=== PATIENT | female | born 1940 | race Caucasian/White ===

== ENCOUNTER → 2016-06-30 | Outpatient (CLI) | payer MEDICARE, OTHER ==
[~2016-06-30] MED LIST: ASPIRIN81 M2 PO; ATACAND32 MG PO; BISOPROLOL/HCTZ1 TA3 PO; EFFIENT10 MG PO; GABAPENTIN300 M2 PO; GLUCOSAMINE CHO1 CA1 PO; GLUCOSAMINE1000 MG PO; HYDROCODON-ACE1 EAC5 PO; LEVOXYL200 MC1 PO; LIORESAL10 MG PO; MAG-OX 400400 MG PO; NAPROSYN500 MG PO; NAPROXEN PO; OMEPRAZOLE40 M1 PO; PERCOCET PO; SERTRALINE HCL100 M1 PO; SIMVASTATIN40 MG PO; SYNTHROID PO; SYNTHROID25 MCG PO; TRAMADOL HCL50 M1 PO; VITAMIN B12; VITAMIN C500 M1 PO; WARFARIN SODIUM6 M1 PO; ZEBETA5 MG PO; ZIAC PO; ZIAC1 TAB 2.5/ PO; ZOCOR PO; ZOLOFT PO; ZOLOFT100 MG PO
--- NOTE | ~2016-06-30 | MY11 ---
[facility] A Service of [facility] RADIOLOGY TEXT RESULTS PATIENT: LUISA MARTINEZ LOCATION: [facility] : 42 UNIT #: [id number] AGE: [address]: GRAYSON MALLOY MD SEX: F ORDER DR: [id number] [address] [address] [id number] O MR#: [id number] Acc #: [id number] NAME: LUISA MARTINEZ : 1940 SEX: F STUDY DATE/TIME: 06/30/2016 13:14 UNIT: [facility] ROOM: STUDY DESCRIPTION: MY Mammogram Screening Dig Efren Attending Physician: Dixon Malloy M.D. Referring Physician: Dixon Malloy M.D. Ordering Physician: Dixon Malloy M.D. Primary Care Physician: Dixon Malloy M.D. MEDICAL IMAGING REPORT This report is preliminary unless electronic signature is present. EXAM Digital screening mammogram, 06/30/2016, [facility]. HISTORY 76-year-old woman, no risk elevation. Previous right breast biopsy.. Annual screen. COMPARISON Digitized film screen images 11/20/2006, 12/31/2007. TECHNIQUE Digital imaging of each breast was completed utilizing a screening protocol. Mole markers are placed. Review includes FDA-approved CAD device. FINDINGS Breast parenchyma is fatty replaced. Intramammary lymph node upper posterior third right breast is stable. There is no suspicious breast mass. There are no interval occurring microcalcifications and no architectural deformity. IMPRESSION Negative mammogram. Annual screening recommended. Patients over the age of 40 are entered into a reminder system with target due date for the next mammogram. A result letter will also be sent to the patient. BIRADS: 1 Negative [facility] A Service of [facility] RADIOLOGY TEXT RESULTS PATIENT: LUISA MARTINEZ LOCATION: [facility] : 42 UNIT #: [id number] AGE: [address]: GRAYSON MALLOY MD SEX: F ORDER DR: Dictated by... Marcial Trejo M.D. THIS IS AN ELECTRONICALLY VERIFIED REPORT Marcial Trejo M.D. at 07/04/2016 3:13 PM ARPITA/sathish TD: 07/04/2016 13:51 JOB #: [id number] MEDICAL IMAGING REPORT Page 1 of 1
== END | disposition home or self-care (01) ==
LOC: SMAM 13:53
DX: Z12.31 Encounter for screening mammogram for malignant neoplasm of breast (principal); Z98.890 Other specified postprocedural states
CPT/HCPCS: G0202

== ENCOUNTER → 2016-07-24 | Outpatient (CLI) | payer MEDICARE, OTHER ==
[2016-07-24 10:19] LABS: ALBUMIN SERUM 4.3 g/dL (3.5-5.0); BILIRUBIN,TOTAL 0.6 mg/dL (0.2-2.0); CALCIUM SERUM 9.2 mg/dL (8.4-10.2); GLOM FILT RATE Estimated 55.5 mL/min (>60); POTASSIUM 4.5 mmol/L (3.5-5.1); PROTEIN TOTAL SERUM 7.1 g/dL (6.0-8.3)
== END | disposition home or self-care (01) ==
LOC: SLAB 09:35
PROVIDERS: Obstetrics & Gynecology
DX: M15.9 Polyosteoarthritis, unspecified (principal); Z79.1 Long term (current) use of non-steroidal anti-inflammatories (NSAID)
CPT/HCPCS: 36415; 80053

== ENCOUNTER 2016-08-29 14:55 | Inpatient (IN) | payer MEDICARE, OTHER ==
--- NOTE | ~2016-08-29 | CO ---
Unit #: [id number] #: [id number] Patient: LUISA MARTINEZ [id number] [address] [address] [id number] I MR#: [id number] NAME: LUISA MARTINEZ ROOM: 320 Age: 76 Sex: F Admission Date: 08/29/2016 : 1940 Attending Physician: Antonette Ko M.D. Primary Care Physician: Dixon Llanes M.D. Consultation Date: 08/30/2016 CONSULTATION REPORT HISTORY OF PRESENT ILLNESS Ms. Martinez is a 76-year-old white female with nausea, vomiting, intense abdominal pain. The patient was seen in the emergency room and was noted to have increased lipase and amylase consistent with pancreatitis. CT scan confirmed this diagnosis. There was a question of whether or not she also had gallstones. PAST MEDICAL HISTORY Gastroesophageal reflux disease, hypertension, coronary artery disease and thyroid issues as well as psychiatric issues. PAST SURGICAL HISTORY Tonsillectomy, hysterectomy, thyroidectomy, rectal fistula surgery, heart stents, epidural blocks. SOCIAL HISTORY She is a nonsmoker, nondrinker, retired, disabled. ALLERGIES IV dye. HOME MEDICATIONS 1. Atacand. 2. Effient. 3. Zocor. 4. Zoloft. 5. Ziac. 6. Glucosamine. 7. Vitamin C. 8. Vitamin B12. PHYSICAL EXAMINATION VITAL SIGNS: Temperature 98. Pulse 70. Respirations 18. Blood pressure 190/80. HEENT: ENT clear. There is no jaundice. Injected sclerae noted. Pupils equal, reactive to light and accommodation. CHEST: Grossly clear. CARDIAC: Rhythm is regular. No murmurs. ABDOMEN: Soft, nontender but the patient is dry heaving. She does have some mid epigastric fullness. EXTREMITIES: Limited range of motion. She is at bedrest at present. IMPRESSION Severe biliary pancreatitis. See laboratory and CT scanning. I do not Unit #: [id number] #: [id number] Patient: LUISA MARTINEZ feel she has retained common duct stone with normal bilirubin. Dr. Dalton, however, was consulted. She does need further IV antibiotics. Check labs and observe her. Dictated by... Sumeet Smith/malcolm TD: 08/30/2016 11:37 JOB #: [id number] CONSULTATION REPORT Page 1 of 1 X Hernesto Lopez MD CONSULTATION REPORT
--- NOTE | ~2016-08-29 | OR ---
Unit #: [id number] #: [id number] Patient: LUISA MARTINEZ [id number] [address] [place], [place] [address] [id number] I MR#: [id number] NAME: LUISA MARTINEZ ROOM: [facility] Date of Procedure: 08/30/2016 Admission Date: 08/29/2016 Surgeon: Bobo Dalton M.D. : 1940 Attending Physician: Antonette Ko M.D. Primary Care Physician: See Llanes OPERATIVE REPORT PREOPERATIVE DIAGNOSES The patient has presented with biliary pancreatitis. In addition, she is found to have possibly a stone in the distal common bile duct. PROCEDURES PERFORMED 1. Endoscopic retrograde cholangiopancreatography and sphincterotomy. 2. Endoscopic retrograde cholangiopancreatography and balloon sweep. POSTOPERATIVE DIAGNOSES The patient had a normal ERCP. The common bile duct was about 7 to 8 mm in size. After a limited sphincterotomy, the duct was swept with a 9 mm balloon multiple times and no filling defects or stones were found. The cystic duct was patent. RECOMMENDATIONS 1. Clear liquid diet. 2. N.p.o. after midnight. 3. The patient will require laparoscopic cholecystectomy as per surgery recommendations in a day or two. SEDATION USED MAC. DESCRIPTION OF PROCEDURE Following detailed explanation of the potential risks and complications of an ERCP, namely perforation, bleeding, and complications related to sedation, the patient was brought to GI lab and laid in the left semiprone position. Sedation using MAC was given. A preliminary upper GI endoscopy was performed, which was normal. The lateral viewing duodenoscope was advanced through the oral cavity into the esophagus and advanced into the stomach. Pylorus was intubated in usual fashion. The scope was advanced in deep descending duodenum. Upon shortening the scope, major papilla and ampullary area was visualized en face. Using selective guidewire cannulation based technique, the common bile duct was cannulated in the first attempt. The contrast cholangiogram was obtained. The CBD that was dilated about 7 mm; however, no obvious filling defects were seen. We then performed a limited sphincterotomy. The duct was then swept with a 9 mm balloon multiple times and no filling defects nor any stone was seen or delivered. Excellent drainage of bile was seen. A normal occlusion cholangiogram was demonstrated. The scope and the accessories were then withdrawn. The patient returned to the recovery area. She tolerated the procedure without any postprocedure complications. Unit #: [id number] #: [id number] Patient: LUISA MARTINEZ Dictated by.Sumeet Castano/deejay TD: 08/31/2016 03:06 JOB #: [id number] CC: Sumeet Smith M.D. Kavita Jyotula, M.D. OPERATIVE REPORT Page 1 of 1 X Bobo Dalton MD X PROCEDURE OPERATIVE NOTE
--- NOTE | ~2016-08-29 | EKG ---
PATIENT: LUISA MARTINEZ UNIT #: [id number] Ventricular Rate: 71 BPM Atrial Rate: 71 BPM P-R Interval: 136 ms QRS Duration: 84 ms Q-T Interval: 408 ms QTC Calculation(Bezet): 443 ms P [place]: 35 degrees Calculated R [place]: 28 degrees Calculated T [place]: 13 degrees Diagnosis Line: Normal sinus rhythm Diagnosis Line: Low voltage QRS Diagnosis Line: Nonspecific T wave abnormality Diagnosis Line: Abnormal ECG Diagnosis Line: When compared with ECG of 29-AUG-2016 23:25, Diagnosis Line: No significant change was found Diagnosis Line: Confirmed by FRANCI SUAZO MD ([id number]) on Diagnosis Line: 09/02/2016 1:31:48 PM INTERPRETING MD: LISA
--- NOTE | ~2016-08-29 | CR58 ---
[facility] A Service [facility] RADIOLOGY TEXT RESULTS PATIENT: LUISA MARTINEZ LOCATION: [facility] 320-01 : 42 UNIT #: [id number] AGE: [address]: Antonette Ko MD SEX: F ORDER DR: [id number] [id number] [facility]. [place], [place] [address] [id number] I MR#: [id number] Acc #: [id number] NAME: LUISA MARTINEZ : 1940 SEX: F STUDY DATE/TIME: 09/04/2016 16:23 UNIT: [address] ROOM: [facility] STUDY DESCRIPTION: CR Cervical Spine 2 or 3 Views Attending Physician: Antonette Ko M.D. Ordering Physician: Antonette Ko M.D. Primary Care Physician: See [facility] IMAGING REPORT This report is preliminary unless electronic signature is present EXAM Cervical spine, 4 views COMPARISON None. INDICATIONS 76-year-old female with neck pain and stiffness since ERCP 7 days ago. FINDINGS Exam is limited by under-penetration. Minimal calcification in the left upper neck, likely within the carotid artery. AP view is also limited by nonstandard positioning. There are surgical clips in the bilateral lower neck, suggestive of prior thyroidectomy. There is disc height loss at C3-C4, C5-C6 and C6-C7 with associated degenerative endplate changes and uncinate hypertrophy at these levels. Uncinate hypertrophy is likely causing some degree of foraminal narrowing at C6-C7. No dislocation of the cervical spine. No evidence of acute fracture. IMPRESSION 1. No evidence of acute fracture or subluxation of the cervical spine. 2. There is multilevel degenerative disc disease and uncinate hypertrophy of the cervical spine, most significant at C6-C7 where there is likely associated neural foraminal narrowing. 3. Minimal calcification of the left upper neck, likely within the carotid artery. Dictated by... Adrian Rangel M.D. [facility] A Service [facility] RADIOLOGY TEXT RESULTS PATIENT: LUISA MARTINEZ LOCATION: [facility] 320-01 : 42 UNIT #: [id number] AGE: [address]: Antonette Ko MD SEX: F ORDER DR: THIS IS AN ELECTRONICALLY VERIFIED REPORT Adrian Rangel M.D. at 09/05/2016 3:17 PM BLM/pcl TD: 09/04/2016 21:47 JOB #: [id number] MEDICAL IMAGING REPORT Page 1 of 1 COPY
--- NOTE | ~2016-08-29 | EKG ---
PATIENT: LUISA MARTINEZ UNIT #: [id number] Ventricular Rate: 61 BPM Atrial Rate: 61 BPM P-R Interval: 180 ms QRS Duration: 82 ms Q-T Interval: 450 ms QTC Calculation(Bezet): 453 ms P [place]: 54 degrees Calculated R [place]: 9 degrees Calculated T [place]: 17 degrees Diagnosis Line: Normal sinus rhythm Diagnosis Line: Nonspecific ST and T wave abnormality Diagnosis Line: Abnormal ECG Diagnosis Line: No previous ECGs available Diagnosis Line: Confirmed by GET TAI MD ([id number]) on Diagnosis Line: 08/30/2016 2:00:32 PM INTERPRETING MD: ZAIRE ACOSTA
--- NOTE | ~2016-08-29 | DS ---
Unit #: [id number] #: [id number] Patient: LUISA MARTINEZ [id number] [address] [address] [id number] I MR#: [id number] NAME: LUISA MARTINEZ ROOM: 320 Age: 76 Sex: F Admission Date: 08/29/2016 : 1940 Discharge Date: Attending Physician: Antonette Ko M.D. Primary Care Physician: See Llanes DISCHARGE SUMMARY DISCHARGE DIAGNOSES 1. Acute gallstone pancreatitis, status post endoscopic retrograde cholangiopancreatography and laparoscopic cholecystectomy. 2. Hypertension, uncontrolled. 3. Iron-deficiency anemia. 4. Transaminitis. 5. Hypothyroidism. 6. Acute neck pain, likely musculoskeletal. 7. Hypokalemia. 8. Hypomagnesemia. 9. Acute diastolic heart failure. 10. Moderate tricuspid regurgitation. 11. Gastroesophageal reflux disease. 12. Hiatal hernia. 13. Hypertension, uncontrolled. 14. Hyperlipidemia. 15. Sinus bradycardia. 16. Osteoarthritis and degenerative joint disease. 17. B12 and iron deficiency. 18. 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 CONSULTATIONS 1. Dr. Lopez. 2. Dr. Dalton. PROCEDURES 1. Patient had ERCP on August 30, which is normal. Bile duct is 7-8 mm in size. 2. Patient had laparoscopic cholecystectomy on September 01, 2016. DIAGNOSTIC STUDIES LABORATORY: Sodium 139, potassium 3.7, creatinine 0.7, glucose 91. Magnesium 1.5. WBC 4.5, hemoglobin 8.9, platelets 138,000. BNP 243. IMAGING: Chest x-ray, two view: No active disease. ALLERGIES Iodinated contrast media. DISCHARGE MEDICATIONS 1. Neurontin 300 at bedtime. 2. Zoloft 150 daily. 3. Bisoprolol 5 mg p.o. daily. 4. Simvastatin 40 daily. Unit #: [id number] #: [id number] Patient: LUISA MARTINEZ 5. Atacand 32 mg p.o. daily. 6. Percocet 5 mg q.6 p.r.n. pain. 7. Effient 10 mg daily. 8. Omeprazole 40 daily. 9. Baclofen 5 mg three times daily p.r.n. 10. Synthroid 225 mcg p.o. daily. 11. Magnesium oxide 400 p.o. b.i.d. HOSPITALIZATION COURSE A 76 year old admitted because of abdominal pain. Acute biliary pancreatitis, status post ERCP which was normal. Patient had a laparoscopic cholecystectomy. Currently, she is tolerating diet okay. Surgeon is okay for the patient to be discharge on Percocet pain medication. Acute neck pain, likely musculoskeletal. X-ray of the cervical spine pending. Currently, she is on Percocet and Baclofen. Acute diastolic heart failure: Patient received diuretics, currently stable. Hypokalemia and hypomagnesemia: Replace with p.o. Hypertension: Uncontrolled. Adjusted her medicines. Anemia: Iron deficiency. Acute on chronic. No active bleeding. DISPOSITION The patient will be discharged home if x-ray of the cervical spine negative. FOLLOWUP 1. Follow with family physician in one week time. 2. Follow with Dr. Everett in two weeks time. 3. Follow with Dr. Krishnan as an outpatient p.r.n. Discharge time taken is 31 minutes. Dictated by... Sumeet Ross/bisi TD: 09/04/2016 16:51 JOB #: [id number] Unit #: [id number] #: [id number] Patient: LUISA MARTINEZ DISCHARGE SUMMARY Page 1 of 1 X Antonette Ko MD X DISCHARGE SUMMARY
--- NOTE | ~2016-08-29 | CO ---
Unit #: [id number] #: [id number] Patient: LUISA MARTINEZ [id number] [facility] [address] [facility]. [place], [place] [address] [id number] I MR#: [id number] NAME: LUIAS MARTINEZ ROOM: 320 Age: 76 Sex: F Admission Date: 08/29/2016 : 1940 Attending Physician: Antonette Ko M.D. Primary Care Physician: Dixon Llanes M.D. Consultation Date: 08/31/2016 CONSULTATION REPORT Consult requested by Surgery for preop clearance for laparoscopic cholecystectomy in a.m. PRIMARY CARE PHYSICIAN Dr. Llanes. HISTORY OF PRESENT ILLNESS This 76-year-old female followed by Dr. Everett. She originally had a diagnosis of coronary artery disease and stent placement on 05/07/2012. She had stent to the LAD and first diagonal branch. She has been following with Dr. Everett ever since. She went out to eat 2 days ago and after she came home, she started having some stomach upset feelings. The next day, she developed some severe pain in her stomach that progressed to nausea and vomiting. She presented to the emergency room then on 08/29/[address] scan was completed. This showed some inflammatory stranding seen around the body and tail of the pancreas in particular. Also, some cholelithiasis without convincing evidence of acute cholecystitis. She was transferred to [facility] and Surgery was consulted. An ERCP has been completed and she is scheduled for a laparoscopic cholecystectomy in the morning. Due to her cardiac history, Cardiology has been consulted to give preop clearance. This information is received from the patient's interview. She is accompanied by two of her sisters during our interview. Her prior cardiac testing history includes a 2D echocardiogram on 09/24/2014. It showed mild LVH with grade 3 diastolic dysfunction, EF of 50% to 55% and mild MR, TR, and MS. In 2014, she developed some chest pain and had a stress test which was abnormal. She then went back to the catheterization lab and had a repeat heart catheterization. This showed left main normal, LAD in-stent restenosis minimal with no areas of hemodynamically significant stenosis. Left circumflex with mild diffuse irregularities, but nothing of hemodynamic significance. The right coronary also with minimal diffuse irregularities, but nothing of hemodynamic significance. EF of 60%. Medical therapy and evaluation for noncardiac chest pain was advised. PAST MEDICAL HISTORY Includes; 1. Coronary artery disease with known stent placement as above in 2012. 2. Hypertension. 3. Hyperlipidemia. 4. Gastroesophageal reflux disease with hiatal hernia. 5. Anemia. 6. Depression. Unit #: [id number] #: [id number] Patient: LUISA MARTINEZ 7. Hypothyroidism. 8. Peripheral neuropathy. 9. Vitamin B12 deficiency. 10. Degenerative joint disease. 11. Osteoporosis. 12. Tonsillectomy. 13. Rectal fistula repair. 14. Bilateral total knee replacements. 15. Left ear surgery x6 leaving her deaf in her left ear. 16. Hysterectomy. ALLERGIES IV dye. HOME MEDICATIONS They include the following; gabapentin 300 mg q.h.s., omeprazole 40 mg daily, Ziac 5/6.25 mg daily, sertraline 150 mg daily, Synthroid 225 mcg daily, Naprosyn 500 mg b.i.d., Atacand 32 mg daily, Effient 10 mg daily, Simvastatin 40 mg q.h.s. SOCIAL HISTORY She denies ever using tobacco. She uses alcoholic beverages rarely. She denies the use of drugs. FAMILY HISTORY Son and granddaughter with diabetes. Mother, father, sister, and two brothers with coronary artery disease. REVIEW OF SYSTEMS GENERAL: Positive for fever, chills, and flu-like symptoms over the last 2 days, but no unintentional weight loss. SKIN: Denies any rashes, ulcerations, or wounds. HEAD: Headache currently. EYES: Denies any sudden change in vision. EARS: Denies any sudden change in hearing. BLEEDING: Denies epistaxis, hemoptysis, hematuria, or melena. THROAT: Denies any problems with swallowing. LUNGS: She did have some wheezing yesterday while here in the hospital, but no cough or shortness of breath. CHEST: Denies any pain. She has chronic palpitations and tachycardia feelings. No PND or orthopnea. GI: Positive for nausea and vomiting, but no diarrhea or constipation or change in stools. GENITOURINARY: Denies any burning or urgency. EXTREMITIES: She has bilateral lower extremity swelling chronically. NEUROLOGIC: She denies any numbness, tingling, seizures, stroke-like symptoms, dizziness, unsteadiness or falls. Her activity level is that she cooks and cleans her own home, walks in the store. She chronically has been tired after walking to the street and back to her home. This is no worse than it has been over the last several years. DIAGNOSTIC STUDIES LABORATORY RESULTS: Include sodium 140, potassium 3.9, glucose 129, BUN 14, creatinine 0.9, AST 161, ALT 167, albumin 3.6, lipase 157, amylase 309, magnesium 107, hemoglobin 10.8, hematocrit 33, platelets 149, and white blood cell count 7.4. CARDIOVASCULAR STUDIES: EKG shows normal sinus rhythm with nonspecific ST Unit #: [id number] #: [id number] Patient: LUISA MARTINEZ and T-wave abnormality. PT 10.7, INR 1.0. Hemoglobin is 10.8, hematocrit 32.6, platelets of 134, and white blood cell count 5.5. Urinalysis is negative with no culture indicated. IMPRESSION 1. Pancreatitis and gallstones. 2. Coronary artery disease with history of percutaneous coronary intervention in 2012 with repeat left heart catheterization in 2014 with minimal in-stent restenosis, but no other intervention. 3. Hypertension. 4. Hyperlipidemia. 5. Gastroesophageal reflux disease with hiatal hernia. 6. Bradycardia. PLAN Effient is on hold pending the surgery in a.m. She poses a low risk for surgery. Her cardiac symptoms appeared to be stable. We will repeat an echocardiogram since the last one was in 12/2014. Dr. Saavedra to make formal recommendations for clearance for surgery. Dictated by... Davidson HobsonPAdenRAdenN. for Sreedhar Saavedra M.D. SADE/deejay TD: 09/01/2016 15:27 JOB #: [id number] CONSULTATION REPORT Page 1 of 1 X X CONSULTATION REPORT
--- NOTE | ~2016-08-29 | OR ---
Unit #: [id number] #: [id number] Patient: LUISA MARTINEZ [id number] [address] [address] [id number] MR#: [id number] NAME: LUISA MARTINEZ ROOM: [facility] Date of Procedure: 09/01/2016 Admission Date: 08/29/2016 Surgeon: Shukri Krishnan III, M.D. : 1940 Attending Physician: Antonette Ko M.D. Primary Care Physician: Dixon Llanes M.D. OPERATIVE REPORT PREOPERATIVE DIAGNOSIS Gallstone pancreatitis. POSTOPERATIVE DIAGNOSIS Gallstone pancreatitis. PROCEDURE PERFORMED Laparoscopic cholecystectomy. ANESTHESIA General. SPECIMENS Gallbladder to Pathology. COMPLICATIONS None apparent. ESTIMATED BLOOD LOSS Minimal. DRAINS None. INDICATIONS FOR PROCEDURE This is a 76-year-old lady, who presented with biliary pancreatitis. Her pancreatitis has calmed down and she underwent ERCP yesterday. She is here today for laparoscopic cholecystectomy. DESCRIPTION OF PROCEDURE After consent was obtained, the patient was brought to the operating room and placed in the supine position. General anesthetic was administered. Her abdomen was prepped and draped in standard surgical fashion. I made a 5-mm incision in the right upper quadrant. I used an Optiview to enter into the peritoneal cavity without any difficulty. CO2 pneumoperitoneum was then established. Next, a 5-mm trocar was placed in the supraumbilical region. An 11-mm port was placed in the midepigastric region and a third 5-mm port was placed in the right lateral subcostal region. I began by retracting the gallbladder superiorly and laterally. I dissected out the cystic duct and cystic artery and after these were carefully identified, I placed two clips proximally, one clip distally along both structures and then they were divided. The gallbladder was Unit #: [id number] #: [id number] Patient: LUISA MARTINEZ then taken off the liver bed using the hook cautery without any spillage of bile. I had excellent hemostasis. All needle, sponge, and instrument counts were correct x2. I extracted the gallbladder through the epigastric port site with some dilatation of the fascia. I then again had good hemostasis. I used a neoClose device to reapproximate the epigastric port site. I then removed all trocars, released the pneumoperitoneum and the incisions were all injected with 0.25% plain Marcaine. I reapproximated the skin edges with interrupted 4-0 Vicryl subcuticular suture. Steri-Strips were then applied. The patient tolerated the procedure without any problems and returned to the recovery room in stable condition. Dictated by... Shukri Krishnan III, M.D. VCL/deejay TD: 09/02/2016 12:14 JOB #: [id number] OPERATIVE REPORT Page 1 of 1 X Shukri Krishnan III, MD X PROCEDURE OPERATIVE NOTE
--- NOTE | ~2016-08-29 | HP ---
Unit #: [id number] #: [id number] Patient: LUISA MARTINEZ [id number] [address] [address] [id number] I MR#: [id number] NAME: LUISA MARTINEZ ROOM: 320 Age: 76 Sex: F Admission Date: 08/29/2016 : 1940 Attending Physician: Raul Medina M.D. Primary Care Physician: Dixon Llanes M.D. HISTORY AND PHYSICAL CHIEF COMPLAINT Gallstone pancreatitis. HISTORY This pleasant 76-year-old female with CAD, hypertension, hypothyroidism, was transferred from [facility] emergency department for pancreatitis. The patient was in her usual state of health until 10:00 this morning when she developed severe epigastric pain radiating to her back associated with nausea and vomiting. She went to [facility] ER where she was diagnosed with pancreatitis. CT scan also showed possible distal common bile duct stone and gallstones. The patient was bolused with IV fluids, given Zofran, morphine and sent to this facility for further treatment. Denies previous history of pancreatitis in the past, does not drink alcohol. PAST MEDICAL HISTORY 1. DJD. 2. Osteoporosis. 3. CAD, status post PCI and stent. 4. Hypothyroidism. 5. GERD and a hiatal hernia. 6. Hyperlipidemia. 7. Hypertension. 8. B12 and iron deficiency anemia. 9. Deaf, left ear. 10. Depression. 11. Multiple ear surgeries. 12. Tonsillectomy. 13. Total abdominal hysterectomy. 14. Total thyroidectomy for goiter. 15. Rectal fistula repair. 16. D and C x2 for miscarriages. 17. Bilateral total knee replacements. ALLERGIES IV dye. HOME MEDICATIONS 1. Synthroid 0.225 mg daily. 2. Naprosyn 500 mg b.i.d. 3. Atacand 32 mg daily. 4. Effient 10 mg daily. 5. Zocor 40 mg q. h.s. 6. Neurontin 300 mg q. h.s. Unit #: [id number] #: [id number] Patient: LUISA MARTINEZ 7. Omeprazole 40 mg daily. 8. Ziac 5/6.25 mg daily. 9. Zoloft 150 mg daily. FAMILY HISTORY CAD, DVT, CVA, hypertension, hyperlipidemia. SOCIAL HISTORY The patient lives alone. She is a lifelong nonsmoker, does not drink alcohol. REVIEW OF SYSTEMS Notable for abdominal pain radiating to he back with nausea, vomiting, arthritis, CAD, hypothyroidism, GERD, hyperlipidemia, hypertension, anemia, left ear deafness, depression, above mentioned surgeries. All other systems were reviewed and are otherwise negative. PHYSICAL EXAMINATION GENERAL APPEARANCE: Pleasant, obese 76-year-old female, currently in no acute distress after two doses of morphine. VITAL SIGNS: Temperature 97.9, pulse 67, respirations 18, blood pressure 195/83. O2 saturation is 97%. HEENT: Eyes PERRLA. Extraocular muscles are intact. Pharynx is benign. NECK: Supple without adenopathy or thyromegaly. CHEST: Clear. CARDIAC: Normal S1 and S2 without S3, S4 or murmur. ABDOMEN: Bowel sounds are present. The patient is most tender in the right upper quadrant and epigastric region without rebound, guarding. No hepatosplenomegaly or masses. EXTREMITIES: Without edema. Pedal pulses are markedly diminished. No ulcers on the feet. NEUROLOGIC: The patient is awake, alert, oriented. Cranial nerves are intact. Equal strength throughout. DIAGNOSTIC STUDIES LABORATORY: Hematocrit is 36.7, normal white count and platelet count. SMA-12 - glucose 117, BUN 26, AST is 324, ALT 183, alkaline phos. 184, amylase 2333, lipase 6323. Urine negative. IMAGING: CT scan - pancreatitis, possible distal common bile duct stone and gallstone disease. 1.5 cm right adrenal nodule. Diverticular disease. ASSESSMENT 1. Gallstone pancreatitis, rule out common bile duct stone. 2. Coronary artery disease, status post percutaneous coronary intervention and stent, on Effient. 3. Hypertension. 4. Degenerative joint disease. 5. Hypothyroidism. 6. B12 and iron deficiency anemia. 7. Hyperlipidemia. PLANS 1. Aggressive IV fluids, strict I's and O's. 2. Repeat labs in a few hours. Unit #: [id number] #: [id number] Patient: LUISA MARTINEZ 3. Discontinue hydrochlorothiazide. 4. Blood pressure control. 5. Supportive treatment. 6. and [facility] to see in the morning. 7. SCDs for DVT prophylaxis. 8. Hold Effient. 9. One dose of antibiotics. 10. Obtain baseline EKG. 11. Patient was noted to have an indeterminate right adrenal nodule. She will need an MRI scan as an outpatient or a CT scan adrenal protocol as an outpatient. Dictated by Sumeet Joe/velma TD: 08/30/2016 06:13 JOB #: [id number] HISTORY AND PHYSICAL Page 1 of 1 X Deena Ochoa MD X HISTORY AND PHYSICAL
--- NOTE | ~2016-08-29 | CT4 ---
[facility] A Service of [facility] & [facility] RADIOLOGY TEXT RESULTS PATIENT: LUISA MARTINEZ LOCATION: C3A 320-01 : 42 UNIT #: [id number] AGE: [address]: RIAN MATHIAS MD SEX: F ORDER DR: [id number] [address] [address] [id number] E MR#: [id number] Acc #: [id number] NAME: LUISA MARTINEZ : 1940 SEX: F STUDY DATE/TIME: 08/29/2016 15:47 UNIT: SED ROOM: STUDY DESCRIPTION: CT Abd and Pelv Wo Cont Attending Physician: Belkys Saldaña M.D. Ordering Physician: Belkys Saldaña M.D. Primary Care Physician: See [facility] IMAGING REPORT This report is preliminary unless electronic signature is present. EXAM CT abdomen and pelvis without contrast INDICATION Nausea and vomiting since this morning. Patient ate a salad yesterday and thinks she may have food poisoning. TECHNIQUE Axial CT images were obtained from dome of the diaphragm through the symphysis pubis. No oral or intravenous contrast material was administered. This CT exam was performed with one or more of the following radiation dose reduction techniques: automatic exposure control, adjustment of mA and/or kV according to patient size, and iterative reconstruction. FINDINGS Images through the lung bases demonstrate some bibasilar atelectasis. There are coronary artery calcifications. Patient has hepatosplenomegaly of uncertain clinical significance. There is cholelithiasis without any evidence of acute cholecystitis. Left adrenal gland is normal in appearance. Incidentally noted is a 1.5 cm right adrenal nodule which measures higher in density than a lipid-rich adenoma. The kidneys are normal in appearance. This patient is noted to have peripancreatic stranding and loss of normal fat planes characteristic of acute pancreatitis, particularly involving the tail and body of the pancreas although there is some milder involvement also seen around the neck and head. There is a tiny hyperdensity which is seen in the location of the common bile duct and the possibility that this reflects choledocholithiasis is certainly not excluded. There is however no ductal STS. [facility] A Service of [facility] & [facility] RADIOLOGY TEXT RESULTS PATIENT: LUISA MARTINEZ LOCATION: C3A 320-01 : 42 UNIT #: [id number] AGE: [address]: RIAN MATHIAS MD SEX: F ORDER DR: dilatation seen and the gallbladder does not show any gallbladder wall thickening or pericholecystic fluid to suggest acute cholecystitis. Uterus is surgically absent. Urinary bladder appears normal. Patient does have colonic diverticulosis without any convincing evidence of diverticulitis. Shotty pelvic nodes are noted. The appendix is not clearly identified but I do not see any dilated tubular structure or soft tissue stranding within the right lower quadrant to suggest acute appendicitis. Review of bony windows does not demonstrate any aggressive osseous abnormalities. IMPRESSION 1. Patient is noted to have inflammatory stranding seen around the body and tail of the pancreas in particular, although there is some milder involvement also seen around the head and neck. Findings are felt to be characteristic of pancreatitis. While I do not see any common bile duct dilatation or pancreatic ductal dilatation there is a hyperdensity which is seen basically clear the distal common bile duct which certainly could reflect choledocholithiasis. 2. Cholelithiasis without convincing evidence of acute cholecystitis. 3. a 1.5 cm right adrenal nodule. This is indeterminate on the basis of this examination and could be better characterized with adrenal protocol CT or MRI on a nonemergent outpatient basis. 4. The appendix is not definitively seen but I do not see any evidence of acute appendicitis. 5. Colonic diverticulosis without evidence of diverticulitis. 6. Please note presence or absence of pancreatic necrosis cannot be assessed on the basis of this examination. No peripancreatic fluid collections are seen. Dictated by... Riana Hamilton M.D. THIS IS AN ELECTRONICALLY VERIFIED REPORT Riana Hamilton M.D. at 08/29/2016 10:42 PM BRISA/olivia TD: 08/29/2016 22:04 JOB #: [id number] MEDICAL IMAGING REPORT Page 1 of 1
--- NOTE | ~2016-08-29 | CR63 ---
[facility] A Service of [facility] & [facility] RADIOLOGY TEXT RESULTS PATIENT: LUISA MARTINEZ LOCATION: [facility] 320-01 : 42 UNIT #: [id number] AGE: [address]: Antonette Ko MD SEX: F ORDER DR: [id number] [facility] [address] [facility] [place], [place] [address] [id number] I MR#: [id number] Acc #: [id number] NAME: LUISA MARTINEZ : 1940 SEX: F STUDY DATE/TIME: 09/02/2016 14:08 UNIT: [address] ROOM: [facility] STUDY DESCRIPTION: CR Chest 2 View Attending Physician: Antonette Ko M.D. Ordering Physician: Felisha Ordaz A.P.R.N. Primary Care Physician: Dixon Llanes M.D. MEDICAL IMAGING REPORT This report is preliminary unless electronic signature is present EXAM AP and lateral chest. HISTORY Cough and shortness of air since yesterday. Cholecystectomy yesterday. FINDINGS Two views of the chest demonstrate the cardiac size and pulmonary vascularity are within normal limits allowing for relatively shallow inspiration. Mild linear atelectasis or scarring has developed in the right lower lung compared to 02/04/14. No airspace infiltrates or effusions. Moderate hypertrophic spurring in the lower thoracic spine. IMPRESSION No evidence of active disease. Mild linear atelectasis or scarring in the right base. Dictated by... Ron Pfeiffer M.D. THIS IS AN ELECTRONICALLY VERIFIED REPORT Ron Pfeiffer M.D. at 09/03/2016 10:30 PM JUSTYNA/rhonda TD: 09/02/2016 23:43 JOB #: [id number] MEDICAL IMAGING REPORT Page 1 of 1 COPY
--- NOTE | ~2016-08-29 | CO ---
Unit #: [id number] #: [id number] Patient: LUISA MARTINEZ [id number] [address] [address] [id number] I MR#: [id number] NAME: LUISA MARTINEZ ROOM: 320 Age: 76 Sex: F Admission Date: 08/29/2016 : 1940 Attending Physician: Antonette Ko M.D. Primary Care Physician: Dixon Llanes M.D. Consultation Date: 08/30/2016 CONSULTATION REPORT REASON FOR CONSULTATION Biliary pancreatitis. HISTORY OF PRESENT ILLNESS Ms. Martinez is a 76-year-old white female who has history of obesity, history of coronary artery disease, hypertension, hypothyroidism. Patient is admitted from [facility] Emergency Room because of a diagnosis of biliary pancreatitis. She had severely intense epigastric pain radiating to the back, along with nausea and vomiting. She said she had similar pain about 2 weeks ago, which resolved spontaneously. Her CAT scan shows possible density in the distal common bile duct; however, the CBD is not dilated. The patient has since been on IV analgesia and empiric antibiotics. She is still having some residual pain. PAST MEDICAL HISTORY Her past medical history is significant for history of coronary artery disease status post PTCA and coronary stent placements, hypothyroidism, osteoporosis, degenerative joint disease, hyperlipidemia, hypertension, depression. PAST SURGICAL HISTORY Previous surgeries included a total abdominal hysterectomy, total thyroidectomy for goiter, repair of rectal fissure, D and C x2, bilateral total knee replacements. MEDICATIONS She is on the following medicines: Effient, Atacand, naproxen, Synthroid, Zocor, Neurontin, omeprazole, Ziac and Zoloft. ALLERGIES Intravenous dye. FAMILY HISTORY Significant for coronary artery disease, hypertension, hyperlipidemia, DVT and stroke. SOCIAL HISTORY The patient lives at home. She has never smoked. Does not drink alcohol. REVIEW OF SYSTEMS A detailed review of organ systems does not reveal any recent weight loss. No history of fevers, chills or rigors. There is no history of headache, seizures, chest pain or syncope. No history of cough, expectoration or hemoptysis. No history of dysuria, hematuria or polyuria. No history of Unit #: [id number] #: [id number] Patient: LUISA MARTINEZ focal seizures or extremity weakness. The rest of the review of organ systems is unremarkable. PHYSICAL EXAMINATION GENERAL: On examination, she is awake, alert and oriented and appears obese. VITAL SIGNS: Vital signs are stable with a temperature of 98.4, pulse 59 per minute and regular, respiratory rate 16, blood pressure 139/62. She weighs 216 pounds, which is close to her baseline weight. GENERAL: She has mild pallor, there being no icterus, lymphadenopathy or peripheral edema. CARDIOVASCULAR EXAMINATION: Normal heart sounds. No murmurs on auscultation. RESPIRATORY: The lungs reveal normal breath sounds, good air entry. ABDOMEN: The abdomen is soft, obese and mildly tender in the epigastric area. The liver and spleen are not palpable. Bowel sounds are normal. DIAGNOSTIC STUDIES LABORATORY: Lab evaluation shows a total bilirubin of 1.8. AST, ALT are 324 and 183 and now declined to 171, 135 respectively. Alkaline phosphatase is 160. Amylase and lipase are also showing a declining trend. IMAGING: CT scan of the abdomen does not show any biliary ductal dilation but does show distal common bile duct density. CLINICAL IMPRESSION Patient's biliary pancreatitis most likely is (1) the common bile duct stone; however, in view of the CT findings of the distal common bile duct shadowing, it would be reasonable to proceed with an ERCP and clear the common bile duct. The patient will need a laparoscopic cholecystectomy a day or two later. The above plan was discussed with Ms. Martinez, and she was reassured. Thank you very much for asking me to see this pleasant patient, and I appreciate the consult. Dictated by... Sumeet Parish/itz TD: 08/31/2016 10:38 JOB #: [id number] CONSULTATION REPORT Page 1 of 1 X Bobo Dalton MD CONSULTATION REPORT
--- NOTE | ~2016-08-29 | CR83 ---
[facility] A Service of [facility] & [facility] RADIOLOGY TEXT RESULTS PATIENT: LUISA MARTINEZ LOCATION: [facility] 320-01 : 42 UNIT #: [id number] AGE: [address]: Antonette Ko MD SEX: F ORDER DR: [id number] [facility] [address] [facility]. [place], [place] [address] [id number] I MR#: [id number] Acc #: [id number] NAME: LUISA MARTINEZ : 1940 SEX: F STUDY DATE/TIME: 08/30/2016 15:52 [facility]: [facility] ROOM: [facility] STUDY DESCRIPTION: CR ERCP Biliary Duct SI Attending Physician: Antonette Ko M.D. Ordering Physician: Bobo Dalton M.D. Primary Care Physician: Dixon Llanes M.D. MEDICAL IMAGING REPORT This report is preliminary unless electronic signature is present EXAM ERCP with fluoroscopy, 08/30/2016 HISTORY 76-year-old female with possible CBD stone on CT. Biliary pancreatitis. COMPARISON CT abdomen and pelvis, 08/29/2016 FINDINGS Eight spot fluoroscopic images were obtained during ERCP procedure performed by Dr. Dalton. 2.1 minutes of fluoroscopy time was documented by the technologist. Contrast was injected into the common bile duct. There is good opacification of the downstream intrahepatic bile ducts and CBD. No definite filling defect is seen to suggest retained stone. No high-grade stricture is identified. Cystic duct is opacified. Pancreatic duct was not sought. Please refer to the operative report for additional findings and recommendations. Dictated by... Sherice Savage M.D. THIS IS AN ELECTRONICALLY VERIFIED REPORT Sherice Savage M.D. at 08/31/2016 10:06 AM Shey TD: 08/31/2016 08:33 JOB #: [id number] MEDICAL IMAGING REPORT Page 1 of 1 COPY
--- NOTE | ~2016-08-29 | EKG ---
PATIENT: LUISA MARTINEZ UNIT #: [id number] Ventricular Rate: 64 BPM Atrial Rate: 64 BPM P-R Interval: 128 ms QRS Duration: 92 ms Q-T Interval: 424 ms QTC Calculation(Bezet): 437 ms P Ruth: 30 degrees Calculated R Ruth: 30 degrees Calculated T Ruth: -22 degrees Diagnosis Line: Sinus rhythm with Premature atrial complexes Diagnosis Line: T wave abnormality, consider anterior ischemia Diagnosis Line: Abnormal ECG Diagnosis Line: When compared with ECG of 01-SEP-2016 06:10, Diagnosis Line: (unconfirmed) Diagnosis Line: Premature atrial complexes are now Present Diagnosis Line: Confirmed by MARIA T CARMEN MD ([id number]) on 09/06/2016 Diagnosis Line: 1:10:02 PM INTERPRETING MD: NELLA ACOSTA
[~2016-08-29 14:55] MED LIST changes: -GABAPENTIN300 M2 PO; -LIORESAL10 MG PO; -MAG-OX 400400 MG PO; -NAPROSYN500 MG PO; -OMEPRAZOLE40 M1 PO; -PERCOCET PO; -SERTRALINE HCL100 M1 PO; -SIMVASTATIN40 MG PO; -SYNTHROID25 MCG PO; -ZEBETA5 MG PO; -ZIAC PO
[2016-08-29 15:38] LABS: BASOPHIL% 0.3 % (0-2.5); EOSINOPHIL# 0.2 X10e3 (0-0.7); EOSINOPHIL% 3.3 % (0.0-7.0); HEMATOCRIT 36.7 % (35.0-45.0); HEMOGLOBIN 12.3 gm/dL (12.0-16.0); LYMPHOCYTE# 0.4 X10e3 (1.0-3.5); LYMPHOCYTE% 6.7 % (17.0-45.0); MEAN CORPUSCULAR HEMOGLOBIN 28.1 PG (28-34); MEAN CORPUSCULAR HGB CONC 33.5 g/dL (30-36); MEAN PLATELET VOLUME 6.8 FL (6.5-11.5); MONOCYTE# 0.3 X10e3 (0-1.0); MONOCYTE% 6.3 % (3.0-12.0); NEUTROPHIL# 4.4 X10e3 (1.5-7.1); NEUTROPHIL% 83.4 % (40-75); PLATELET COUNT 163 X10e3 (140-420); RED BLOOD COUNT 4.37 X10e (3.90-5.30); RED CELL DISTRIBUTION WIDTH 14.8 % (11.0-15.5); WHITE BLOOD COUNT 5.3 X10e3 (4.0-10.5)
[2016-08-29 15:46] LABS: DIFF IND NO
[2016-08-29 16:16] LABS: URINE SOURCE CLEAN CATCH
[2016-08-29 16:19] LABS: URINE APPEARANCE CLEAR; URINE BILIRUBIN NEG (NEG); URINE BLOOD NEG (NEG); URINE COLOR YELLOW; URINE GLUCOSE NEG (NORM); URINE KETONE NEG (NEG); URINE LEUKOCYTE ESTERASE NEG (NEG); URINE NITRATE NEG (NEG); URINE PH 5.5 (5-8); URINE PROTEIN NEG (NEG); URINE SPECIFIC GRAVITY 1.025 (1.003-1.035)
[2016-08-29 16:20] LABS: MICRO INDICATED? NO
[2016-08-29 16:40] LABS: ALBUMIN SERUM 4.7 g/dL (3.5-5.0); BILIRUBIN, DIRECT 0.9 mg/dL (0.0-0.2); BILIRUBIN,INDIRECT 0.7 mg/dL (0.0-0.9); BILIRUBIN,TOTAL 1.6 mg/dL (0.2-2.0); BUN/CREATININE RATIO 28.88; CALCIUM SERUM 9.4 mg/dL (8.4-10.2); CREATININE SERUM 0.9 mg/dL (0.6-1.4); POTASSIUM 3.8 mmol/L (3.5-5.1); PROTEIN TOTAL SERUM 7.7 g/dL (6.0-8.3)
[2016-08-29] MEDS ORDERED: SYNTHROID25 MCG PO (22:32)
[2016-08-29] MEDS ORDERED: EFFIENT10 MG PO (22:33)
[2016-08-29] MEDS ORDERED: NAPROSYN500 MG PO (22:33)
[2016-08-29] MEDS ORDERED: ATACAND32 MG PO (22:33)
[2016-08-29] MEDS ORDERED: SIMVASTATIN40 MG PO (22:34)
[2016-08-29] MEDS ORDERED: GABAPENTIN300 M2 PO (22:34)
[2016-08-29] MEDS ORDERED: OMEPRAZOLE40 M1 PO (22:36)
[2016-08-29] MEDS ORDERED: ZIAC PO (22:39)
[2016-08-29] MEDS ORDERED: SERTRALINE HCL100 M1 PO (22:40)
[2016-08-30 02:32] LABS: HEMATOCRIT 32.6 % (35.0-45.0); HEMOGLOBIN 10.8 gm/dL (12.0-16.0); MEAN CELL VOLUME 85.4 FL (83-96); MEAN CORPUSCULAR HEMOGLOBIN 28.4 PG (28-34); MEAN CORPUSCULAR HGB CONC 33.2 g/dL (30-36); MEAN PLATELET VOLUME 7.3 FL (6.5-11.5); RED BLOOD COUNT 3.82 X10e (3.90-5.30); RED CELL DISTRIBUTION WIDTH 14.8 % (11.0-15.5); WHITE BLOOD COUNT 5.5 X10e3 (4.0-10.5)
[2016-08-30 03:26] LABS: BILIRUBIN,TOTAL 1.8 mg/dL (0.2-2.0); CALCIUM SERUM 8.3 mg/dL (8.4-10.2); GLOM FILT RATE Estimated 55.5 mL/min (>60); POTASSIUM 4.5 mmol/L (3.5-5.1); PROTEIN TOTAL SERUM 6.4 g/dL (6.0-8.3)
[2016-08-30 03:27] LABS: PROTHROMBIN TIME (PATIENT) 10.7 SECONDS (9.6-11.5)
[2016-08-30 14:48] LABS: BUN/CREATININE RATIO 17.77; CALCIUM SERUM 8.6 mg/dL (8.4-10.2); CREATININE SERUM 0.9 mg/dL (0.6-1.4); POTASSIUM 4.4 mmol/L (3.5-5.1)
[2016-08-31 01:33] LABS: MAGNESIUM 1.8 mg/dL (1.6-3.0); POTASSIUM 4.1 mmol/L (3.5-5.1)
[2016-08-31 05:19] LABS: HEMOGLOBIN 10.8 gm/dL (12.0-16.0); MEAN CORPUSCULAR HGB CONC 32.6 g/dL (30-36); MEAN PLATELET VOLUME 7.2 FL (6.5-11.5); RED BLOOD COUNT 3.84 X10e (3.90-5.30); WHITE BLOOD COUNT 7.4 X10e3 (4.0-10.5)
[2016-08-31 06:23] LABS: ALBUMIN SERUM 3.6 g/dL (3.5-5.0); BILIRUBIN,TOTAL 2.2 mg/dL (0.2-2.0); BUN/CREATININE RATIO 15.55; CALCIUM SERUM 8.4 mg/dL (8.4-10.2); CREATININE SERUM 0.9 mg/dL (0.6-1.4); MAGNESIUM 1.7 mg/dL (1.6-3.0); POTASSIUM 3.9 mmol/L (3.5-5.1); PROTEIN TOTAL SERUM 6.3 g/dL (6.0-8.3)
[2016-09-01 05:28] LABS: HEMATOCRIT 27.6 % (35.0-45.0); HEMOGLOBIN 9.1 gm/dL (12.0-16.0); MEAN CORPUSCULAR HEMOGLOBIN 28.1 PG (28-34); MEAN PLATELET VOLUME 7.1 FL (6.5-11.5); RED BLOOD COUNT 3.24 X10e (3.90-5.30); RED CELL DISTRIBUTION WIDTH 14.8 % (11.0-15.5); WHITE BLOOD COUNT 4.9 X10e3 (4.0-10.5)
[2016-09-01 06:06] LABS: ALBUMIN SERUM 3.1 g/dL (3.5-5.0); BILIRUBIN,TOTAL 1.4 mg/dL (0.2-2.0); BUN/CREATININE RATIO 11.25; CALCIUM SERUM 8.4 mg/dL (8.4-10.2); CREATININE SERUM 0.8 mg/dL (0.6-1.4); GLOM FILT RATE Estimated 72.7 mL/min (>60); POTASSIUM 3.7 mmol/L (3.5-5.1); PROTEIN TOTAL SERUM 5.3 g/dL (6.0-8.3)
[2016-09-02 06:36] LABS: HEMATOCRIT 27.8 % (35.0-45.0); HEMOGLOBIN 9.2 gm/dL (12.0-16.0); MEAN CELL VOLUME 85.6 FL (83-96); MEAN CORPUSCULAR HEMOGLOBIN 28.4 PG (28-34); MEAN CORPUSCULAR HGB CONC 33.2 g/dL (30-36); MEAN PLATELET VOLUME 7.5 FL (6.5-11.5); RED BLOOD COUNT 3.25 X10e (3.90-5.30); RED CELL DISTRIBUTION WIDTH 14.7 % (11.0-15.5); WHITE BLOOD COUNT 5.4 X10e3 (4.0-10.5)
[2016-09-02 07:04] LABS: ALBUMIN SERUM 3.1 g/dL (3.5-5.0); BILIRUBIN,TOTAL 1.1 mg/dL (0.2-2.0); BUN/CREATININE RATIO 15.71; CALCIUM SERUM 8.6 mg/dL (8.4-10.2); CREATININE SERUM 0.7 mg/dL (0.6-1.4); GLOM FILT RATE Estimated 85.4 mL/min (>60); POTASSIUM 3.9 mmol/L (3.5-5.1); PROTEIN TOTAL SERUM 5.9 g/dL (6.0-8.3)
[2016-09-04 05:45] LABS: HEMATOCRIT 26.5 % (35.0-45.0); HEMOGLOBIN 8.9 gm/dL (12.0-16.0); MEAN CELL VOLUME 83.8 FL (83-96); MEAN CORPUSCULAR HGB CONC 33.4 g/dL (30-36); RED BLOOD COUNT 3.16 X10e (3.90-5.30); RED CELL DISTRIBUTION WIDTH 14.4 % (11.0-15.5); WHITE BLOOD COUNT 4.5 X10e3 (4.0-10.5)
[2016-09-04 07:23] LABS: BUN/CREATININE RATIO 15.55; CALCIUM SERUM 8.4 mg/dL (8.4-10.2); CREATININE SERUM 0.9 mg/dL (0.6-1.4)
[2016-09-04 14:24] LABS: CALCIUM SERUM 8.7 mg/dL (8.4-10.2); CREATININE SERUM 0.7 mg/dL (0.6-1.4); GLOM FILT RATE Estimated 85.4 mL/min (>60); POTASSIUM 3.7 mmol/L (3.5-5.1)
[2016-09-04] MEDS ORDERED: MAG-OX 400400 MG PO (17:50)
[2016-09-04] MEDS ORDERED: ZEBETA5 MG PO (17:51)
[2016-09-04] MEDS ORDERED: LIORESAL10 MG PO (17:51)
[2016-09-04] MEDS ORDERED: PERCOCET PO (17:52)
== END 2016-09-04 19:54 | disposition home or self-care (01) | DRG 417 ==
LOC: SED 14:55 → CEDOF 20:07 → SED 20:07 → C3A PCU 20:11 → CEDOF 20:11 → C3A PCU 23:40
PROVIDERS: Internal Medicine; Internal Medicine Gastroenterology; Student in an Organized Health Care Education/Training Program; Surgery
PROC: 0F798ZZ Dilation of Common Bile Duct, Via Natural or Artificial Opening Endoscopic (ICD-10-PCS; 2016-08-30 16:34)
PROC: 0FT44ZZ Resection of Gallbladder, Percutaneous Endoscopic Approach (ICD-10-PCS; 2016-09-01)
PROC: B246YZZ Ultrasonography of Right and Left Heart using Other Contrast (ICD-10-PCS; principal; 2016-09-01 11:30)
DX: K85.10 Biliary acute pancreatitis without necrosis or infection (principal); I50.31 Acute diastolic (congestive) heart failure; D69.6 Thrombocytopenia, unspecified; G62.9 Polyneuropathy, unspecified; R00.1 Bradycardia, unspecified; E83.42 Hypomagnesemia; I36.1 Nonrheumatic tricuspid (valve) insufficiency; E66.9 Obesity, unspecified; E03.9 Hypothyroidism, unspecified; M81.0 Age-related osteoporosis without current pathological fracture; I25.10 Atherosclerotic heart disease of native coronary artery without angina pectoris; Z95.5 Presence of coronary angioplasty implant and graft; I10 Essential (primary) hypertension; E78.5 Hyperlipidemia, unspecified; K21.9 Gastro-esophageal reflux disease without esophagitis; K44.9 Diaphragmatic hernia without obstruction or gangrene; Z96.653 Presence of artificial knee joint, bilateral; Z90.710 Acquired absence of both cervix and uterus; M54.2 Cervicalgia; E87.6 Hypokalemia; Z91.041 Radiographic dye allergy status; M19.90 Unspecified osteoarthritis, unspecified site; H91.92 Unspecified hearing loss, left ear; Z68.38 Body mass index [BMI] 38.0-38.9, adult
CPT/HCPCS: 36415; 71020; 72040; 74176; 74328; 80048; 80053; 80076; 81003; 82150; 82947; 83690; 83735; 83880; 84132; 84443; 84484; 85025; 85027; 85610; 85730; 88304; 93005; 93306; 94760; 94761; 96374; 99285; J0330; J0360; J0690; J1100; J1940; J2250; J2270; J2405; J2543; J2710; J3010

== ENCOUNTER → 2016-09-15 | Outpatient (CLI) | payer MEDICARE, OTHER ==
[~2016-09-15] MED LIST changes: +GABAPENTIN300 M2 PO; +LIORESAL10 MG PO; +MAG-OX 400400 MG PO; +NAPROSYN500 MG PO; +OMEPRAZOLE40 M1 PO; +PERCOCET PO; +SERTRALINE HCL100 M1 PO; +SIMVASTATIN40 MG PO; +SYNTHROID25 MCG PO; +ZEBETA5 MG PO; +ZIAC PO
--- NOTE | ~2016-09-15 | CT6 ---
[facility] A Service of [facility] RADIOLOGY TEXT RESULTS PATIENT: LUISA MARTINEZ LOCATION: [facility] : 42 UNIT #: [id number] AGE: [address]: GRAYSON MALLOY MD SEX: F ORDER DR: [id number] [place] [id number] O MR#: [id number] Acc #: [id number] NAME: LUISA MARTINEZ : 1940 SEX: F STUDY DATE/TIME: 09/15/2016 11:31 UNIT: [facility] ROOM: STUDY DESCRIPTION: CT Abdomen WWo Cont Attending Physician: Dixon Malloy M.D. Ordering Physician: Dixon Malloy M.D. MEDICAL IMAGING REPORT This report is preliminary unless electronic signature is present. EXAM CT abdomen without and with contrast, adrenal protocol. INDICATION Indeterminate right adrenal nodule on previous CT from 08/29/2016. PROCEDURE Unenhanced CT of the abdomen. Postcontrast CT of the abdomen including early and 15-minute delayed phases per adrenal protocol. This CT exam was performed with one or more of the following radiation dose reduction techniques: automatic exposure control, adjustment of mA and/or kV according to patient size, and iterative reconstruction. COMPARISON 08/29/2016 FINDINGS ABDOMEN WITHOUT CONTRAST: Previous cholecystectomy. No radiodense renal calculus. ABDOMEN WITH CONTRAST: 1.7 cm right adrenal nodule. This nodule shows features in keeping with a benign adenoma. Precontrast HU value is 21.5, maximum postcontrast HU value 73, and HU value on the 15-minute delays of 33.6. Subcentimeter right hepatic lobe cyst. Liver enlarged measuring 21.3 cm. Spleen is enlarged measuring 16 cm. The kidneys, left adrenal gland, pancreas unremarkable. Bowel loops are nondilated. No aggressive appearing bone lesion. IMPRESSION [facility] A Service of [facility] RADIOLOGY TEXT RESULTS PATIENT: LUISA MARTINEZ LOCATION: [facility] : 42 UNIT #: [id number] AGE: [address]: GRAYSON MALLOY MD SEX: F ORDER DR: 1. 1.7 cm benign right adrenal adenoma. No additional followup is required. 2. Hepatosplenomegaly. Dictated by... Pk Tate M.D. THIS IS AN ELECTRONICALLY VERIFIED REPORT Pk Tate M.D. at 09/19/2016 7:07 AM MERCEDES/sathish TD: 09/18/2016 11:22 JOB #: [id number] MEDICAL IMAGING REPORT Page 1 of 1
[2016-09-15 11:15] LABS: POC - CREATININE 0.95 mg/dL (0.44-1.03); POC - GFR >60.0 mL/min (>60)
== END | disposition home or self-care (01) ==
LOC: SCT 11:01
PROVIDERS: Family Medicine
DX: E27.9 Disorder of adrenal gland, unspecified (principal); D35.01 Benign neoplasm of right adrenal gland; R16.2 Hepatomegaly with splenomegaly, not elsewhere classified
CPT/HCPCS: 74150; 82565; Q9967